=== PATIENT | female | born 1955 | race Hispanic/Latino ===

== ENCOUNTER 2020-11-05 16:25 | Emergency (ER) | payer SELFPAY ==
--- OUTSIDE RECORDS SUMMARY | 2020-11-05 16:27 | XMS REPORT | Continuity of Care Document ---
:1955 Author Organization [facility] t Address [address] [place] [address] Care Team Providers Name Role Phone Hortensia Linares MD, Rao Miles Primary Care Physician [phone] Radiology Attending Clinician Unavailable Payers Payer Name Policy Type Policy Number Effective Date Expiration Date S ource Problems Condition Condition Condition Status Onset Resolution Last Treating Co mments Source Name Details Category Date Date Treatment Clinician Date Screening Screening Disease Active 2016-07 Steve ston for colon for colon 2-18 Meth preethi cancer cancer 00:00: st 00 Allergies, Adverse Reactions, Alerts Allergy Allergy Status Severity Reaction(s) Onset Inactive Treating Comm ents Source Name Type Date Date Clinician Penicill Propensi Active 2016-07 [place] n ins ty to 2-15 Methodi adverse 00:00: st reaction 00 s to drug Family History Family Member Diagnosis Comments Start Date Stop Date Source Natural father Cancer [facility]od[facility] Social History Social Habit Start Date Stop Date Quantity Comments Source Tobacco use and 2017-07-07 2017-07-07 Never used [facility] ethod[facility] exposure 00:00:00 00:00:00 Alcohol intake 2017-07-07 2017-07-07 Current [facility] 00:00:00 00:00:00 non-drinker of alcohol (finding) Sex Ass[birth year] At 1955-11-281956-11-28 Stewart Damon ethodist 00:00:00 00:00:00 Smoking Status Start Date Stop Date Source Never smoker Stewart Carola marino Medications Ordered Filled Start Stop Current Ordering Indication Dosage Frequency Signature Comments Components Source Medication Medication Date Date Medication? Clinician (SIG) Name Name darren 2016- Yes 1{tbl} QD Take 1 [place] n 2-18 tablet by Seng (THERAGRAN) 11:59: mouth st tablet 51 daily. Procedures This patient has no known procedures. Encounters Start End Encounter Admission Attending Care Care Encounter Source Date/Time Date/Time Type Type Clinicians Facility Department ID 2020-10-03 2020-10-03 [facility] Radiology [facility] [id number] 15:00:09 23:59:00 Encounter Sourav [id number] Betty [id number] [place] [id number] Results This patient has no known results.
--- NOTE | 2020-11-05 19:16 | ER ---
Nurse's Notes [facility] Name: Jessi Akins Age: 64 yrs Sex: Female : 1955 Arrival Date: 11/05/2020 Time: 16:27 Bed Waiting Private MD: Diagnosis: Presentation: 11/05 16:36 Chief complaint: Patient states: L arm pain, back and head pain s/p trip and fall. No ll1 known LOC. Coronavirus screen: Client denies travel out of the [place] in the last 14 days. At this time, the client does not indicate any symptoms associated with coronavirus-19. Ebola Screen: Patient denies travel to an Ebola-affected area in the 21 days before illness onset. Initial Sepsis Screen: Does the patient meet any 2 criteria? No. Patient's initial sepsis screen is negative. Does the patient have a suspected source of infection? Yes: Skin breakdown/wound. Risk Assessment: Do you want to hurt yourself or someone else? Patient reports no desire to harm self or others. Onset of symptoms was November 05, 2020. 16:36 Method Of Arrival: Ambulatory ll1 16:36 Acuity: DINAH 4 ll1 Historical: - Allergies: 16:39 PENICILLINS; ll1 16:39 Pineapple; ll1 - PMHx: 16:39 None; ll1 - PSHx: 16:39 None; ll1 - Immunization history:: Client reports receiving the 1st dose of the Covid vaccine, Flu vaccine is up to date. - Social history:: Smoking status: Patient denies any tobacco usage or history of. Vital Signs: 16:36 Weight 57.61 kg; Height 5 ft. 4 in. (162.56 cm); Pain 9/10; ll1 16:41 BP 128 / 66; Pulse 69; Resp 17; Temp 98.7; Pulse Ox 96% ; Pain 9/10; ll1 16:36 Body Mass Index 21.80 (57.61 kg, 162.56 cm) ll1 ED Course: 16:27 Patient arrived in ED. mr 16:37 Triage completed. ll1 16:41 Arm band placed on. ll1 Administered Medications: No medications were administered Outcome: 19:16 Patient left the ED. ll1 Signatures: Prema Vaz Lynsay, RN RN ll1 Corrections: (The following items were deleted from the chart) 16:41 16:36 Chief complaint: Patient states: L arm pain and head pain s/p fall. 1 1
[2020-11-05 19:29] VITALS: BP 128/66; TEMP 98.7; O2SAT 96
== END 2020-11-05 19:16 | disposition left against medical advice (07) ==
LOC: ER 16:25
DX: Z53.21 Procedure and treatment not carried out due to patient leaving prior to being seen by health care provider (principal)
CPT/HCPCS: 99281